=== PATIENT | male | born 1990 | race Caucasian/White ===

== ENCOUNTER 2017-04-19 00:38 | Emergency (ER) | payer SELFPAY ==
[2017-04-19 01:09] VITALS: BP 146/83
== END 2017-04-19 01:09 | disposition home or self-care (01) ==
LOC: ED 00:38
DX: R19.7 Diarrhea, unspecified (principal); R03.0 Elevated blood-pressure reading, without diagnosis of hypertension

== ENCOUNTER 2017-05-23 18:14 | Emergency (ER) | payer SELFPAY ==
[~2017-05-23] VITALS: Ht 182.9 cm; Wt 97.1 kg
[2017-05-23 20:41] LABS: BASOPHIL % 0.3 % (0-2); PLATELET COUNT 246 x10^3mcL (130-400); RED CELL DISTRIBUTION WIDTH 14.1 % (11.5-14.5)
[2017-05-23 20:47] LABS: CALCIUM 9.1 mg/dL (8.5-10.1); CARBON DIOXIDE 28.2 mmol/L (21-32); CHLORIDE SERUM 103 mmol/L (98-107); GFR1 > 60 mL/min; GLUCOSE SERUM 103 mg/dL (74-106); POTASSIUM SERUM 3.4 mmol/L (3.5-5.1); SODIUM SERUM 140 mmol/L (136-145)
[2017-05-23 21:20] VITALS: BP 112/70
== END 2017-05-23 21:20 | disposition home or self-care (01) ==
LOC: ED 18:14
PROVIDERS: Emergency Medicine
DX: R07.9 Chest pain, unspecified (principal); R06.00 Dyspnea, unspecified; Z71.6 Tobacco abuse counseling
CPT/HCPCS: 36415; 99406

== ENCOUNTER 2020-03-29 06:11 | Emergency (ER) | payer MEDICAID, SELFPAY ==
[~2020-03-29] VITALS: Ht 182.9 cm; Wt 97.5 kg
[2020-03-29 06:13] VITALS: Ht 182.9 cm; Wt 97.5 kg
[2020-03-29 07:31] LABS: BASOPHIL % 0.4 % (0-2); PLATELET COUNT 217 x10^3mcL (130-400); RED CELL DISTRIBUTION WIDTH 13.7 % (11.5-14.5)
[2020-03-29 09:07] LABS: CALCIUM 8.7 mg/dL (8.5-10.1); CARBON DIOXIDE 25.9 mmol/L (21-32); CHLORIDE SERUM 102 mmol/L (98-107); CREATININE SERUM 1.2 mg/dL (0.7-1.3); GFR1 > 60 mL/min; GLUCOSE SERUM 107 mg/dL (74-106); POTASSIUM SERUM 3.9 mmol/L (3.5-5.1); SODIUM SERUM 137 mmol/L (136-145)
[2020-03-29 09:11] LABS: ALBUMIN 3.8 g/dL (3.4-5.0); ALKALINE PHOSPHATASE 69 U/L (46-116); ALT/SGPT 31 U/L (16-63); AST/SGOT 18 U/L (15-37); BILIRUBIN TOTAL 0.48 mg/dL (0.20-1.00)
[2020-03-29 13:39] VITALS: BP 137/74
== END 2020-03-29 13:39 | disposition home or self-care (01) ==
LOC: ED 06:11
PROVIDERS: Emergency Medicine
DX: R07.89 Other chest pain (principal); R06.02 Shortness of breath; F12.10 Cannabis abuse, uncomplicated
CPT/HCPCS: J1885